=== PATIENT | male | born 1985 ===

== ENCOUNTER 2019-06-10 21:30 | Inpatient (IN) | payer SELFPAY ==
[~2019-06-10] VITALS: Ht 160 cm; Wt 46.0 kg
[2019-06-10 21:36] VITALS: BP 131/90
[2019-06-10 21:49] LABS: HEMATOCRIT 40.4 % (42.0-52.0); MEAN CELL VOLUME 98.5 fl (80.0-94.0); MEAN CORPUSCULAR HGB 34.1 pg (27.0-31.0); MEAN CORPUSCULAR HGB CONC 34.7 g/dl (33.0-37.0); MEAN PLATELET VOLUME 10.2 fl (9.6-12.3); PLATELET COUNT AUTOMATED 163 10*3/uL (130-400); RED CELL DISTRI WIDTH 13.3 % (0-14.5); WHITE BLOOD COUNT 3.1 10*3/uL (4.8-10.8)
[2019-06-10 22:07] LABS: ALBUMIN 3.3 gm/dl (3.1-4.5); ALKALINE PHOSPHATASE 142 U/L (45-117); BUN 10 mg/dl (7-24); CHLORIDE 107 mmol/L (98-107); CREATININE 0.85 mg/dL (0.70-1.30); POTASSIUM 3.3 mmol/L (3.5-5.1); SGOT/AST 175 IU/L (3-35); SGPT/ALT 99 U/L (12-78); SODIUM 147 mmol/L (136-145); TOTAL PROTEIN 7.3 gm/dL (6.4-8.2)
[2019-06-10 22:09] LABS: ACETAMINOPHEN (TYLENOL) < 5.0 ug/ml (10-30); TROPONIN I < 0.015 ng/ml (<0.045)
[2019-06-10 22:18] LABS: ATYPICAL LYMPHS 1 % (0-0); BASOPHILS 1 % (0-1); PLATELET SUFFICIENCY NORMAL (NORMAL); TOTAL CELLS COUNTED 100 #CELLS
[2019-06-10 23:41] LABS: BILIRUBIN NEGATIVE (NEGATIVE); BLOOD NEGATIVE (NEGATIVE); CLARITY CLEAR (CLEAR); COLOR YELLOW (YELLOW); GLUCOSE NEGATIVE (NEGATIVE); KETONE NEGATIVE (NEGATIVE); LEUKO ESTERASE NEGATIVE (NEGATIVE); NITRITE NEGATIVE (NEGATIVE); PH 6.5 (5.0-9.0); SPECIFIC GRAVITY <= 1.005 (1.005-1.030); UROBILINOGEN 0.2 E.U./dl (0.2-1.0)
[2019-06-10 23:49] LABS: URINE AMPHETAMINES < 1000 (1000ng/ml); URINE BARBITURATES < 200 (200ng/ml); URINE BENZODIAZEPINES < 200 (200ng/ml); URINE CANNABINOIDS (THC) < 50 (50ng/ml); URINE COCAINE < 300 (300ng/ml); URINE METHADONE < 300 (300ng/ml); URINE OPIATES < 300 (300ng/ml)
[2019-06-10 23:50] LABS: URINE PHENCYCLIDINE < 25 (25ng/ml)
[2019-06-11] VITALS (7 sets, daily range): BP systolic 86–159; BP diastolic 57–92
--- NOTE | 2019-06-11 01:10 | NUR ---
A 33, admitted to [facility], under the services of BLANK Virk DO with a diagnosis of alcohol causing toxic effect. Chief complaint is pt was unresponsive in his truck after drinking alcohol. Patient arrived via stretcher from ER. Monitor applied. Initial assessment completed. Vital signs taken and recorded. BLANK VIRK DO notified of admission to the unit. Orders received. See assessment for past medical history, medications and allergies. Patient and/or family oriented to unit. [facility] visitation policy reviewed. Clothing/patient valuable form completed. HUI TURK
--- NOTE | 2019-06-11 02:13 | NUR ---
PT AWAKE, SINGING OUT LOUD... LANGUAGE UNKNOWN.
--- NOTE | 2019-06-11 02:50 | NUR ---
BONG NOONAN [id number] Please refer to the physician's history and physical for past medical history, comorbid conditions, and allergies. Diagnosis: ALCOHOL CAUSING TOXIC EFFECT [place] Score: 17,AT RISK WOUND DESCRIPTIONS: Wound Number: 1 Location of the wound: Right side of mouth Thickness: Partial Size: 1.7cm x 0.1cm x 0.1cm Tunneling: none Undermining: none Sinus Tract: none Presence of Exudate: none Amount: None Color: Red Odor: None Periwound Skin Appearance: Normal Wound edges: approximated Pain (associated with wound): none at time of assessment How does patient state this happened? pt unable to state how this happened Surface the patient is resting on: Position Pro SKIN PREVENTION RECOMMENDATION: 1. Pressure redistribution support surface as appropriate 2. Elevate heels 3. Remove boots/TEDS every shift and reapply 4. Head of bed 30 degrees as tolerated 5. Assess nutrition and hydration 6. Manage moisture 7. Avoid the use of containment devices while in bed 8. Use absorptive products on surfaces limit layers of linens on bed 9. Turn and reposition every 1-2 hours in bed and every 1 hour in chair as tolerated 10. Weight shifts every 15 minutes while up in chair 11. Offloading with pillows or device to keep heels elevated off bed 12. Monitor skin at least every shift 13. Inspect under medical devices twice a day
--- NOTE | 2019-06-11 03:08 | NUR ---
DOZING. IVF INFUSE ORDERED. BED EXIT ALARM REMAINS ON FOR SAFETY.
--- NOTE | 2019-06-11 04:53 | NUR ---
500 CC OF MAINTENENCE SALINE IN #1 BAG. BOLUSED AT 999 CC/HR ORDERED BY DR TITUS.
[2019-06-11 05:41] LABS: ALBUMIN 3.1 gm/dl (3.1-4.5); ALKALINE PHOSPHATASE 128 U/L (45-117); BUN 10 mg/dl (7-24); CHLORIDE 108 mmol/L (98-107); CREATININE 0.72 mg/dL (0.70-1.30); PHOSPHOROUS 4.7 mg/dL (2.5-4.9); POTASSIUM 3.3 mmol/L (3.5-5.1); SGOT/AST 153 IU/L (3-35); SGPT/ALT 89 U/L (12-78); SODIUM 145 mmol/L (136-145); TOTAL PROTEIN 6.6 gm/dL (6.4-8.2)
[2019-06-11 06:14] LABS: HEMATOCRIT 36.9 % (42.0-52.0); HEMOGLOBIN 12.4 g/dl (14.0-18.0); MEAN CELL VOLUME 99.2 fl (80.0-94.0); MEAN CORPUSCULAR HGB 33.3 pg (27.0-31.0); MEAN CORPUSCULAR HGB CONC 33.6 g/dl (33.0-37.0); MEAN PLATELET VOLUME 10.6 fl (9.6-12.3); PLATELET COUNT AUTOMATED 158 10*3/uL (130-400); RED BLOOD COUNT 3.72 10*6/uL (4.50-5.90); RED CELL DISTRI WIDTH 13.2 % (0-14.5); WHITE BLOOD COUNT 3.1 10*3/uL (4.8-10.8)
[2019-06-11 08:00] LABS: BASOPHILS 2 % (0-1); TOTAL CELLS COUNTED 100 #CELLS
[2019-06-11 08:01] LABS: PLATELET SUFFICIENCY NORMAL (NORMAL)
--- NOTE | 2019-06-11 13:44 | NUR ---
Discharge instructions reviewed with patient/family. Patient receptive and verbalizes understanding. Follow-up care arranged. Written instructions given to patient/family. MAUDE OLSEN
--- NOTE | 2019-06-11 16:00 | NUR ---
PT WAITING ON RIDE FOR DISCHARGE.
--- NOTE | 2019-06-11 17:25 | NUR ---
PT STILL WIAITNG FOR SOMEONE TO PICK HIM UP AND TAKE HIM HOME. WHEN ASKED HE STATES THEY ARE ON THE WAY. PT CONTINES TO HAVE MODERATE TREMORING OF EXTREMITIES. PT REFUSING TANYTHING TO EAT OR DRINK AT THIS TIME.
--- NOTE | 2019-06-11 17:39 | NUR ---
Discharge instructions reviewed with patient. Patient receptive and verbalizes understanding. Follow-up care arranged. Written instructions given to patient. Pt walked to the elevator. YOGESH ARGUETA
== END 2019-06-11 17:39 | disposition home or self-care (01) | DRG 917 ==
LOC: ED 21:30 → ICCU 06-11 00:40 → EDHOLD 06-11 00:40 → ICCU 06-11 00:50
PROVIDERS: Family Medicine; Student in an Organized Health Care Education/Training Program; ADMIT Internal Medicine
DX: T51.91XA Toxic effect of unspecified alcohol, accidental (unintentional), initial encounter (principal); G93.41 Metabolic encephalopathy; E87.0 Hyperosmolality and hypernatremia; R74.0 Nonspecific elevation of levels of transaminase and lactic acid dehydrogenase [LDH]; D53.9 Nutritional anemia, unspecified; G93.89 Other specified disorders of brain; F10.10 Alcohol abuse, uncomplicated; R63.6 Underweight; D72.829 Elevated white blood cell count, unspecified; E87.6 Hypokalemia; E87.8 Other disorders of electrolyte and fluid balance, not elsewhere classified; Y92.89 Other specified places as the place of occurrence of the external cause